=== PATIENT | female | born 1985 | race African-American/Black ===

== ENCOUNTER 2016-07-06 00:25 | Emergency (ER) | payer BC ==
[~2016-07-06] VITALS: Ht 160 cm; Wt 98.7 kg
[~2016-07-06 00:25] MED LIST: ATARAX,VISTARIL50 MG PO; CIPRO500 MG PO; NOHOMEMEDS; PROMETHAZINE HC25 M1 PO
[2016-07-06 02:32] VITALS: BP 113/91
== END 2016-07-06 02:37 | disposition home or self-care (01) ==
LOC: EXP 00:25 → EME 00:25 → EXP 02:37
DX: S93.602A Unspecified sprain of left foot, initial encounter (principal); S93.402A Sprain of unspecified ligament of left ankle, initial encounter; X50.1XXA Overexertion from prolonged static or awkward postures, initial encounter; F17.200 Nicotine dependence, unspecified, uncomplicated
CPT/HCPCS: 73610; 73630; 99281; 99284; J7512

== ENCOUNTER 2016-10-16 15:28 | Emergency (ER) | payer BC ==
[~2016-10-16] VITALS: Ht 157.5 cm; Wt 94.9 kg
[2016-10-16] MEDS ORDERED: NAPROSYN500 MG PO (16:33)
[2016-10-16 16:51] VITALS: BP 112/69
== END 2016-10-16 16:55 | disposition home or self-care (01) ==
LOC: EME 15:28
PROC: 2W3HX1Z Immobilization of Left Thumb using Splint (ICD-10-PCS; principal; 2016-10-16)
DX: S60.012A Contusion of left thumb without damage to nail, initial encounter (principal); W23.0XXA Caught, crushed, jammed, or pinched between moving objects, initial encounter; Y92.810 Car as the place of occurrence of the external cause; F17.200 Nicotine dependence, unspecified, uncomplicated; Z88.1 Allergy status to other antibiotic agents
CPT/HCPCS: 73140; 99281; 99282

== ENCOUNTER 2016-12-28 00:52 | Emergency (ER) | payer BC ==
[~2016-12-28] VITALS: Ht 157.5 cm; Wt 91.4 kg
[~2016-12-28 00:52] MED LIST changes: +NAPROSYN500 MG PO
[2016-12-28] MEDS ORDERED: NAPROXEN500 MG PO (01:53)
[2016-12-28] MEDS ORDERED: FLEXERIL10 MG PO (01:53)
[2016-12-28 02:04] VITALS: BP 128/79
== END 2016-12-28 02:06 | disposition home or self-care (01) ==
LOC: EME 00:52
DX: S23.3XXA Sprain of ligaments of thoracic spine, initial encounter (principal); W50.0XXA Accidental hit or strike by another person, initial encounter; Z88.0 Allergy status to penicillin; Z87.891 Personal history of nicotine dependence
CPT/HCPCS: 71020; 99281; 99283

== ENCOUNTER 2017-02-18 13:20 | Emergency (ER) | payer BC ==
[~2017-02-18] VITALS: Ht 160 cm; Wt 90.6 kg
[~2017-02-18 13:20] MED LIST changes: +FLEXERIL10 MG PO; +NAPROXEN500 MG PO
[2017-02-18] MEDS ORDERED: MEDROL DOSEPAK4 MG PO (15:58)
[2017-02-18 16:10] VITALS: BP 104/76
== END 2017-02-18 16:13 | disposition home or self-care (01) ==
LOC: EME 13:20
DX: S43.402A Unspecified sprain of left shoulder joint, initial encounter (principal); X50.0XXA Overexertion from strenuous movement or load, initial encounter; F17.200 Nicotine dependence, unspecified, uncomplicated; Z88.0 Allergy status to penicillin
CPT/HCPCS: 73030; 99281; 99283